=== PATIENT | female | born 1935 | race Caucasian/White ===

== ENCOUNTER 2023-04-23 16:22 | Inpatient (IN) | payer MEDICARE, OTHER ==
[2023-04-23 17:38] LABS: Basophils % (A) 0 %; Eosinophils # (A) 0.1 k/uL (0-0.7); Eosinophils % (A) 1 %; HCT 47.1 % (34.0-46.0); HGB 14.9 gm/dL (11.4-16.0); Lymphocytes # (A) 1.2 k/uL (1.0-4.8); Lymphocytes % (A) 14 %; MCH 28.8 pg (25.0-35.0); MCHC 31.6 g/dL (31.0-37.0); MCV 91.1 fL (80.0-100.0); Mean Platelet Volume 8.3; Monocytes # (A) 0.5 k/uL (0-1.0); Monocytes % (A) 6 %; Neutrophils # (A) 6.2 k/uL (1.3-7.7); Neutrophils % (A) 77 %; Platelet Count 221 k/uL (150-450); RBC 5.16 m/uL (3.80-5.40); RDW 14.2 % (11.5-15.5); WBC 8.1 k/uL (3.8-10.6)
[2023-04-23 17:47] LABS: Partial Thromboplastin Time 23.6 sec (22.0-30.0); Prothrombin Time 10.9 sec (9.0-12.0)
[2023-04-23 17:53] LABS: ALT 61 U/L (4-34); AST 58 U/L (14-36); African American GFR (CKD) 76 (>60 ml/min/1.73 sqM); Albumin 3.8 g/dL (3.5-5.0); Alkaline Phosphatase 79 U/L (38-126); Anion Gap 7 mmol/L; Blood Urea Nitrogen 38 mg/dL (7-17); Calcium 9.4 mg/dL (8.4-10.2); Carbon Dioxide 27 mmol/L (22-30); Chloride 104 mmol/L (98-107); Non-African American GFR(CKD) 66 (>60 ml/min/1.73 sqM); Potassium 5.1 mmol/L (3.5-5.1); Sodium 138 mmol/L (137-145); Total Bilirubin 1.1 mg/dL (0.2-1.3); Total Protein 6.3 g/dL (6.3-8.2)
[2023-04-23 17:54] LABS: Glucose 85 mg/dL (74-99)
--- NOTE | 2023-04-23 18:01 | XR ---
EXAMINATION TYPE: XR chest 2V DATE OF EXAM: 04/23/2023 5:37 PM COMPARISON: None TECHNIQUE: XR chest 2V Frontal and lateral views of the chest. CLINICAL INDICATION:Female, 88 years old with history of difficulty breathing; FINDINGS: Lungs/Pleura: No evidence of focal consolidation or pneumothorax. Blunting of the costophrenic angles is present. Pulmonary vascularity: Unremarkable. Heart/mediastinum: Cardiomediastinal silhouette is enlarged and stable. Musculoskeletal: Degenerative changes of the shoulder joints. Degeneration changes throughout the spi ne. IMPRESSION: Cardiomegaly with trace bilateral pleural effusions. Correlate with serum BNP.
--- NOTE | 2023-04-23 18:06 | ED ---
General Adult HPI - General Chief complaint: Shortness of Breath Stated complaint: sob Time Seen by Provider: 04/23/23 17:00 Source: patient, family, RN notes reviewed, old records reviewed Mode of arrival: wheelchair Limitations: no limitations - History of Present Illness Initial comments: This is an 88-year-old female who presents emergency Department complaining of difficulty breathing 1 week. Patient went to see her primary medical care doctor he sent her to the emergency department. Patient states she's also noticed increased swelling to the legs. Patient states she sits in bed or on a couch she's finding so she gets up and moves around she's very short of breath. Patient denies any chest pain or palpitations. Patient denies any cough. Patient denies any calf tenderness. Patient denies any history of atrial fibrillation. Patient denies any history of congestive heart. Patient denies headache patient denies numbness weakness per patient denies lightheadedness or dizziness. - Related Data Home Medications Medication Instructions Recorded Confirmed Calcium Carbonate/Vitamin D3 1 cap PO BID 04/23/23 04/23/23 [Calcium 600 mg-D3 10 Mcg (400 Iu)] Cholecalciferol [Vitamin D3 (125 125 mcg PO DAILY 04/23/23 04/23/23 Mcg = 5000 Iu)] Denosumab [Prolia] 60 mg SQ Q180D 04/23/23 04/23/23 Levothyroxine Sodium [Synthroid] 25 mcg PO DAILY 04/23/23 04/23/23 Rosuvastatin Calcium 5 mg PO DAILY 04/23/23 04/23/23 Allergies Allergy/AdvReac Type Severity Reaction Status Date / Time No Known Allergies Allergy Verified 04/23/23 19:04 Review of Systems ROS Statement: Those systems with pertinent positive or pertinent negative responses have been documented in the HPI. ROS Other: All systems not noted in ROS Statement are negative. Past Medical History Past Medical History: No Reported History History of Any Multi-Drug Resistant Organisms: None Reported Past Surgical History: No Surgical Hx Reported Past Psychological History: No Psychological Hx Reported Smoking Status: Former smoker Past Alcohol Use History: Occasional Past Drug Use History: None Reported General Exam - General Exam Comments Initial Comments: GENERAL: Patient is well-developed and well-nourished. Patient is nontoxic and well- hydrated and is in mild distress. ENT: Neck is soft and supple. No significant lymphadenopathy is noted. Oropharynx is clear. Moist mucous membranes. Neck has full range of motion without eliciting any pain. EYES: The sclera were anicteric and conjunctiva were pink and moist. Extraocular movements were intact and pupils were equal round and reactive to light. Eyelids were unremarkable. PULMONARY: Patient has diminished breath sounds on the right with some crackles bilaterally CARDIOVASCULAR: There is a regular rate and rhythm without any murmurs gallops or rubs. ABDOMEN: Soft and nontender with normal bowel sounds. SKIN: Skin is clear with no lesions or rashes and otherwise unremarkable. NEUROLOGIC: Patient is alert and oriented x3. Cranial nerves II through XII are grossly intact. Motor and sensory are also intact. Normal speech, volume and content. Symmetrical smile. MUSCULOSKELETAL: Normal extremities with adequate strength and full range of motion. 2+ edema bilaterally LYMPHATICS: No significant lymphadenopathy is noted PSYCHIATRIC: Normal psychiatric evaluation. Limitations: no limitations Course Vital Signs 04/23/23 04/23/23 04/23/23 16:47 17:20 17:24 Temperature 98.6 F Pulse Rate 97 84 Respiratory 22 20 20 Rate Blood Pressure 108/67 110/69 O2 Sat by Pulse 97 95 Oximetry 04/23/23 18:10 Temperature Pulse Rate 83 Respiratory 20 Rate Blood Pressure 109/66 O2 Sat by Pulse 96 Oximetry Medical Decision Making - Medical Decision Making EKG was interpreted by myself shows a sinus rhythm at 93 bpm KS interval 170 QRS 125 QT interval 390 QTC is 450. Patient's shows Q waves in the precordial leads V1 and V2 and V3. Patient is not expressing any chest pain. Was pt. sent in by a medical professional or institution (, PA, DETAILER, urgent care, hospital, or correction...) When possible be specific @ -Dr. Dominique sent the patient to the emergency department Did you speak to anyone other than the patient for history (EMS, parent, family, police, friend...)? What history was obtained from this source @ -Prior to arrival Dr. Dominique gave me the history on this patient Did you review nursing and triage notes (agree or disagree)? Why? @ -I reviewed and agree with nursing and triage notes Were old charts reviewed (outside hosp., previous admission, EMS record, old EKG, old radiological studies, urgent care reports/EKG's, correction records)? Report findings @ -No Differential Diagnosis (chest pain, altered mental status, abdominal pain women, abdominal pain men, vaginal bleeding, weakness, fever, dyspnea, syncope, headache, dizziness, GI bleed, back pain, seizure, CVA, palpatations, mental health, musculoskeletal)? @ -Differential Dyspnea: Coronary syndrome, arrhythmia, tamponade, asthma, COPD, pulmonary embolism, pneumonia, pneumothorax, pulmonary effusion, anaphylaxis, diabetic ketoacidosis, flailed chest, pulmonary contusion, diaphragmatic rupture, anemia, neuromuscular, this is not meant to be an all-inclusive list. EKG interpreted by me (3pts min.). @ -As above X-rays interpreted by me (1pt min.). @ -Chest x-ray showed pulmonary edema CT interpreted by me (1pt min.). @ -None done U/S interpreted by me (1pt. min.). @ -None done What testing was considered but not performed or refused? (CT, X-rays, U/S, labs)? Why? @ -Consider doing a computed tomography scan to rule out PE however the d-dimer was significantly elevated What meds were considered but not given or refused? Why? @ -None Did you discuss the management of the patient with other professionals (professionals i.e. , PA, DETAILER, lab, RT, psych nurse, social studies teacher, forgesmith, teacher, air control/anti air warfare officer, case monitor)? Give summary @ -[place] to [place] hospitalist who agreed to admit the patient Was smoking cessation discussed for >3mins.? @ -No Was critical care preformed (if so, how long)? @ -No Were there social determinants of health that impacted care today? How? (Homelessness, low income, unemployed, alcoholism, drug addiction, trans portation, low edu. Level, literacy, decrease access to med. care, penitentiary, rehab)? @ -No Was there de-escalation of care discussed even if they declined (Discuss DNR or withdrawal of care, Hospice)? DNR status @ -No What co-morbidities impacted this encounter? (DM, HTN, Smoking, COPD, CAD, Cancer, CVA, ARF, Chemo, Hep., AIDS, mental health diagnosis, sleep apnea, morbid obesity)? @ -None Was patient admitted / discharged? Hospital course, mention meds given and route, prescriptions, significant lab abnormalities, going to OR and other pertinent info. @ -Patient received Lasix and had Nitropaste placed while in the emergency department. I spoke with [facility] hospitalist agreed to admit the patient admitted the patient wrote admitting orders. Undiagnosed new problem with uncertain prognosis? @ -No Drug Therapy requiring intensive monitoring for toxicity (Heparin, Nitro, Insulin, Cardizem)? @ -No Were any procedures done? @ -No Diagnosis/symptom? @ -Pulmonary edema Acute, or Chronic, or Acute on Chronic? @ -Acute Uncomplicated (without systemic symptoms) or Complicated (systemic symptoms)? @ -Complicated Side effects of treatment? @ -No Exacerbation, Progression, or Severe Exacerbation? @ -Exacerbation Poses a threat to life or bodily function? How? (Chest pain, [place], [place], pneumonia, PE, COPD, DKA, ARF, appy, cholecystitis, CVA, Diverticulitis, Homicidal, Suicidal, threat to staff... and all critical care pts) @ -Yes is poses a threat to life secondary to hypoxia - Lab Data Result diagrams: 04/23/23 17:16 04/23/23 17:16 Lab Results 04/23/23 04/23/23 04/23/23 Range/Units 17:16 17:16 17:16 WBC 8.1 (3.8-10.6) k/uL RBC 5.16 (3.80-5.40) m/uL Hgb 14.9 (11.4-16.0) gm/dL Hct 47.1 H (34.0-46.0) % MCV 91.1 (80.0-100.0) fL MCH 28.8 (25.0-35.0) pg MCHC 31.6 (31.0-37.0) g/dL RDW 14.2 (11.5-15.5) % Plt Count 221 (150-450) k/uL MPV 8.3 Neutrophils % 77 % Lymphocytes % 14 % Monocytes % 6 % Eosinophils % 1 % Basophils % 0 % Neutrophils # 6.2 (1.3-7.7) k/uL Lymphocytes # 1.2 (1.0-4.8) k/uL Monocytes # 0.5 (0-1.0) k/uL Eosinophils # 0.1 (0-0.7) k/uL Basophils # 0.0 (0-0.2) k/uL PT 10.9 (9.0-12.0) sec INR 1.0 (<1.2) APTT 23.6 (22.0-30.0) sec D-Dimer 0.82 H (<0.60) mg/L FEU Sodium 138 (137-145) mmol/L Potassium 5.1 (3.5-5.1) mmol/L Chloride 104 (98-107) mmol/L Carbon Dioxide 27 (22-30) mmol/L Anion Gap 7 mmol/L BUN 38 H (7-17) mg/dL Creatinine 0.80 (0.52-1.04) mg/dL Est GFR (CKD-EPI)AfAm 76 (>60 ml/min/1.73 sqM) Est GFR (CKD-EPI)NonAf 66 (>60 ml/min/1.73 sqM) Glucose 85 (74-99) mg/dL Plasma Lactic Acid James (0.7-2.0) mmol/L Calcium 9.4 (8.4-10.2) mg/dL Magnesium 2.0 (1.6-2.3) mg/dL Total Bilirubin 1.1 (0.2-1.3) mg/dL AST 58 H (14-36) U/L ALT 61 H (4-34) U/L Alkaline Phosphatase 79 (38-126) U/L Troponin I (0.000-0.034) ng/mL NT-Pro-B Natriuret Pep pg/mL Total Protein 6.3 (6.3-8.2) g/dL Albumin 3.8 (3.5-5.0) g/dL 04/23/23 04/23/23 04/23/23 Range/Units 17:16 17:16 17:16 WBC (3.8-10.6) k/uL RBC (3.80-5.40) m/uL Hgb (11.4-16.0) gm/dL Hct (34.0-46.0) % MCV (80.0-100.0) fL MCH (25.0-35.0) pg MCHC (31.0-37.0) g/dL RDW (11.5-15.5) % Plt Count (150-450) k/uL MPV Neutrophils % % Lymphocytes % % Monocytes % % Eosinophils % % Basophils % % Neutrophils # (1.3-7.7) k/uL Lymphocytes # (1.0-4.8) k/uL Monocytes # (0-1.0) k/uL Eosinophils # (0-0.7) k/uL Basophils # (0-0.2) k/uL PT (9.0-12.0) sec INR (<1.2) APTT (22.0-30.0) sec D-Dimer (<0.60) mg/L FEU Sodium (137-145) mmol/L Potassium (3.5-5.1) mmol/L Chloride (98-107) mmol/L Carbon Dioxide (22-30) mmol/L Anion Gap mmol/L BUN (7-17) mg/dL Creatinine (0.52-1.04) mg/dL Est GFR (CKD-EPI)AfAm (>60 ml/min/1.73 sqM) Est GFR (CKD-EPI)NonAf (>60 ml/min/1.73 sqM) Glucose (74-99) mg/dL Plasma Lactic Acid James 1.4 (0.7-2.0) mmol/L Calcium (8.4-10.2) mg/dL Magnesium (1.6-2.3) mg/dL Total Bilirubin (0.2-1.3) mg/dL AST (14-36) U/L ALT (4-34) U/L Alkaline Phosphatase (38-126) U/L Troponin I 0.039 H* (0.000-0.034) ng/mL NT-Pro-B Natriuret Pep 6490 pg/mL Total Protein (6.3-8.2) g/dL Albumin (3.5-5.0) g/dL Disposition Clinical Impression: Acute pulmonary edema Disposition: ADMITTED IP TO THIS HOSP Referrals: Faustino Dominique MD [Primary Care Provider] - 1-2 days Time of Disposition: 19:12
[2023-04-23] MEDS ORDERED: FUROSEMIDE 10 MG/ML 4 ML VIAL IV STA (19:17)
[2023-04-24] MEDS: FUROSEMIDE 10 MG/ML 4 ML VIAL IV SCH ×2 (05:41→18:46)
--- NOTE | 2023-04-24 11:39 | P.CRDCN ---
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 She has a past medical history of hyperlipidemia and hypothyroidism. She gives history of having shortness of breath that start ed about a week ago but she was putting off getting treatment because she had an appointment with Dr. Dominique yesterday. It was noted that she had weight gain of 7 pounds, lower extremity edema and he sent her to the emergency center for further evaluation. At the time of this evaluation. Patient states that she does have minimal shortness of breath with activity and lower extremity edema is improving. She denies having any chest pain or pressure, no pain in the jaw or arms. No sweats. No orthopnea, she states she's never had this shortness of breath before. Patient received 1 dose of IV Lasix has been followed by IV 40 every 12 hours. She has been diuresing. She does have a history of smoking and quit 30 years ago. She drinks a glass of wine sometimes before dinner. She has a family history with mother having heart failure. Patient is seen today in the emergency center waiting for a bed on the cardiac stepdown unit EKG sinus rhythm, sinus arrhythmia Chest x-ray: Cardiomegaly with bilateral pleural effusions WBC 8.1, hemoglobin 14.9, platelet count 221. D-dimer 0.82. Electrolytes normal. BUN 38 creatinine 0.8. Lactic acid 1.4. Magnesium 2. AST 58, ALT 61. Troponin 0.039. ProBNP 6490. Home cardiac medications: Levothyroxine 25 g daily, rosuvastatin 5 mg daily Review Of Systems: At the time of my evaluation: Constitutional: No fever, no chills. Reports fatigue. EENT: No headache. No dizziness. Lungs: Reports shortness of breath, cough, no sputum production. No wheezing. Reports dyspnea on exertion Cardiovascular: No chest pain, reports lower extremity edema. No palpitations. No paroxysmal nocturnal dyspnea. No orthopnea. No lightheadedness or dizziness. No syncopal episodes. Abdominal: No abdominal pain. No nausea, vomiting. No diarrhea. No constipation. No bloody or tarry stools. Musculoskeletal: No myalgias. No muscle weakness, no frequent falls. Integumentary: No wounds. No rash. No unusual bruising. Neurologic: No aphasia. No facial droop. No change in mentation. Physical examination: Gen: This is a frail appearing 88-year-old female. She is resting in the ear surgery and appears to be comfortable and in no acute distress. VS: reviewed HEENT: Head is atraumatic, normocephalic. Pupils equal, round. Sclerae is anicteric. NECK: Supple. No JVD. LUNGS: Mild crackles to the bilateral bases No intercostal retractions. HEART: Irregular rate and rhythm. No murmur. ABDOMEN: Soft No tenderness. EXTREMITIES: 1+ pedal edema. No calf tenderness. NEUROLOGICAL: Patient is awake, alert and oriented x3. Assessment: Acute heart failure, EF unknown, most likely diastolic Hyperlipidemia Hypothyroidism Plan: Continue IV Lasix for another 24 hours Monitor I&O, daily weights selective lites and renal function Obtain 2-D echocardiogram and Doppler study to assess cardiac structure and function Discussed option of undergoing stress test ruling out coronary artery disease. We'll revisit tomorrow. Further recommendations to follow based upon clinical course Thank you kindly for this consultation. Nurse practitioner note has been reviewed, I agree with documented findings and plan of care. Patient was seen and examined. Past Medical History Past Medical History: No Reported History History of Any Multi-Drug Resistant Organisms: None Reported Past Surgical History: No Surgical Hx Reported Past Psychological History: No Psychological Hx Reported Smoking Status: Former smoker Past Alcohol Use History: Occasional Past Drug Use History: None Reported Medications and Allergies Home Medications Medication Instructions Recorded Confirmed Type Calcium Carbonate/Vitamin D3 1 cap PO BID 04/23/23 04/23/23 History [Calcium 600 mg-D3 10 Mcg (400 Iu)] Cholecalciferol [Vitamin D3 (125 125 mcg PO DAILY 04/23/23 04/23/23 History Mcg = 5000 Iu)] Denosumab [Prolia] 60 mg SQ Q180D 04/23/23 04/23/23 History Levothyroxine Sodium [Synthroid] 25 mcg PO DAILY 04/23/23 04/23/23 History Rosuvastatin Calcium 5 mg PO DAILY 04/23/23 04/23/23 History Allergies Allergy/AdvReac Type Severity Reaction Status Date / Time No Known Allergies Allergy Verified 04/23/23 19:04 Physical Exam Vitals: Vital Signs Temp Pulse Resp BP Pulse Ox 04/24/23 06:32 97.8 F 88 16 105/65 97 04/24/23 05:00 88 16 112/72 99 04/24/23 03:01 79 16 112/74 97 04/23/23 23:06 98.6 F 80 16 110/70 98 04/23/23 19:50 98.1 F 81 18 113/68 97 04/23/23 18:10 83 20 109/66 96 04/23/23 17:24 84 20 110/69 95 04/23/23 17:20 20 04/23/23 16:47 98.6 F 97 22 108/67 97 Intake and Output 04/23/23 04/24/23 04/24/23 22:59 06:59 14:59 Other: Weight 44.906 kg Results 04/23/23 17:16 04/23/23 17:16 Cardiac Enzymes 04/23/23 04/23/23 Range/Units 17:16 17:16 AST 58 H (14-36) U/L Troponin I 0.039 H* (0.000-0.034) ng/mL Coagulation 04/23/23 Range/Units 17:16 PT 10.9 (9.0-12.0) sec APTT 23.6 (22.0-30.0) sec CBC 04/23/23 Range/Units 17:16 WBC 8.1 (3.8-10.6) k/uL RBC 5.16 (3.80-5.40) m/uL Hgb 14.9 (11.4-16.0) gm/dL Hct 47.1 H (34.0-46.0) % Plt Count 221 (150-450) k/uL Comprehensive Metabolic Panel 04/23/23 Range/Units 17:16 Sodium 138 (137-145) mmol/L Potassium 5.1 (3.5-5.1) mmol/L Chloride 104 (98-107) mmol/L Carbon Dioxide 27 (22-30) mmol/L BUN 38 H (7-17) mg/dL Creatinine 0.80 (0.52-1.04) mg/dL Glucose 85 (74-99) mg/dL Calcium 9.4 (8.4-10.2) mg/dL AST 58 H (14-36) U/L ALT 61 H (4-34) U/L Alkaline Phosphatase 79 (38-126) U/L Total Protein 6.3 (6.3-8.2) g/dL Albumin 3.8 (3.5-5.0) g/dL Current Medications Generic Name Dose Route Start Last Admin Trade Name Freq PRN Reason Stop Dose Admin Furosemide 40 mg 04/24/23 06:00 04/24/23 05:41 Furosemide 10 Mg/Ml 4 Ml Vial IV 40 mg Q12H LEAH Administration Nitroglycerin 1 inch 04/24/23 22:00 Nitroglycerin Oint 1 Inch/Gm Packet TOPICAL QID LEAH Intake and Output 04/23/23 04/24/23 04/24/23 22:59 06:59 14:59 Other: Weight 44.906 kg 04/23/23 17:16 04/23/23 17:16
--- NOTE | 2023-04-24 12:11 | CA ---
Transthoracic Echo Report Name: Cori Mendez Age: 88 Gender: F : 1935 Exam Date: 04/24/2023 11:11 Exam Location: [facility] Ht (in): 63 Wt (lb): 99 Ordering Physician: Alivia Shea Attending/Referring Phys: [id number], Monse Bag Machine Operator Gita France RDCS Procedure CPT: Indications: LVF Cardiac Hx: Technical Quality: Excellent Contrast 1: Total Dose (mL): Contrast 2: Total Dose (mL): MEASUREMENTS (Male / Female) Normal Values 2D ECHO LV Diastolic Diameter PLAX 6.0 cm 4.2 - 5.9 / 3.9 - 5.3 cm LV Systolic Diameter PLAX 5.4 cm IVS Diastolic Thickness 0.8 cm 0.6 - 1.0 / 0.6 - 0.9 cm LVPW Diastolic Thickness 1.0 cm 0.6 - 1.0 / 0.6 - 0.9 cm LV Relative Wall Thickness 0.3 RV Internal Dim ED PLAX 2.8 cm LA Systolic Diameter LX 2.8 cm 3.0 - 4.0 / 2.7 - 3.8 cm LV Diastolic Volume MOD 4C 120.5 cm??? LV Systolic Volume MOD 4C 78.3 cm??? LV Ejection Fraction MOD 4C 35.0 % LV Diastolic Length 4C 7.5 cm LV Systolic Length 4C 6.5 cm LV Diastolic Volume MOD 2C 87.9 cm??? LV Systolic Volume MOD 2C 59.6 cm??? LV Ejection Fraction MOD 2C 32.2 % LV Diastolic Length 2C 6.6 cm LV Systolic Length 2C 5.7 cm LA Volume 53.9 cm??? 18 - 58 / 22 - 52 cm??? M-MODE Aortic Root Diameter MM 3.2 cm AV Cusp Separation MM 2.0 cm DOPPLER AV Peak Velocity 120.1 cm/s AV Peak Gradient 5.8 mmHg AI Peak Velocity 313.6 cm/s AI Peak Gradient 39.3 mmHg AI Pressure Half Time 1274.5 ms MV Area PHT 3.6 cm??? Mitral E Point Velocity 92.3 cm/s Mitral A Point Velocity 110.6 cm/s Mitral E to A Ratio 0.8 MV Deceleration Time 209.7 ms MV E' Velocity 4.6 cm/s Mitral E to MV E' Ratio 20.0 TR Peak Velocity 283.9 cm/s TR Peak Gradient 32.2 mmHg Right Ventricular Systolic Press 37.2 mmHg FINDINGS Left Ventricle Left ventricular ejection fraction is estimated at less than 20 %. Moderately increased left ventricular diastolic diameter. Left ventricular wall thickness normal. Severely reduced global left ventricular systolic function. Right Ventricle Normal right ventricular size and function. Mild pulmonary hypertension. Right Atrium Normal right atrial size. Left Atrium Mildly increased left atrial volume. Mitral Valve Mitral valve thickened. Trace to mild mitral regurgitation. Aortic Valve Trileaflet aortic valve. Mild aortic regurgitation. Tricuspid Valve Structurally normal tricuspid valve. Mild tricuspid regurgitation. Pulmonic Valve Structurally normal pulmonic valve. Trace pulmonic regurgitation. Pericardium Normal pericardium. No pericardial effusion. Aorta Normal size aortic root and proximal ascending aorta. CONCLUSIONS Dilated LV with severely impaired LV function. EF is 20% Previewed by: Dr. Get Gonzalez MD (Electronically Signed) Final Date: 24 April 2023 12:10
--- NOTE | 2023-04-24 12:34 | CT ---
EXAMINATION TYPE: CT angio chest DATE OF EXAM: 04/24/2023 COMPARISON: NONE HISTORY: elevated d-dimer and shortness of breath CT DLP: 156 mGycm. Automated Exposure Control for Dose Reduction was Utilized. CONTRAST: CTA scan of the thorax is performed with IV Contrast, patient injected with 100 mL of Isovue 370, pul monary embolism protocol. MIP Images are created on CT scanner and reviewed. FINDINGS: LUNGS: Small to moderate size right greater than left pleural effusions are redemonstrated. There is associated compressive atelectasis in the bases. There is mild/moderate biapical pleural/parenchymal scarring. There is right apical 2.3 x 1.5 cm nodule or nodular consolidation axial image 24 noted. So me dependent atelectasis or edema along the major fissures bilaterally. MEDIASTINUM: There is satisfactory enhancement of the pulmonary artery and its branches, there is no CT evidence for pulmonary embolism. There are no greater than 1 cm hilar or mediastinal lymph nodes. Cardiomegaly is present. Tiny pericardial effusion is seen. Ascending aorta measures 3.[address] in the coronal image 36. OTHER: Mild/moderate multilevel spurring in the spine. IMPRESSION: 1. No CT evidence for acute pulmonary embolism. 2. Findings consistent with CHF exacerbation as there is cardiomegaly with [id number] size rig ht greater than left pleural effusions and mild alveolar edema felt present. 3. There is mild to moderate biapical pleural/critical scarring with slightly more nodular area in th e right lung apex. Underlying pulmonary nodule cannot be excluded. Follow-up PET/CT is advised to fur ther evaluate if there is no old outside CT to compare.
--- NOTE | 2023-04-24 12:43 | HP ---
HISTORY AND PHYSICAL CHIEF COMPLAINT: Shortness of breath. HISTORY OF PRESENT ILLNESS: This is an 88-year-old woman with a past medical history of hyperlipidemia and hypothyroidism, presented with shortness of breath and leg edema to primary physician's office. The patient was sent to [facility], CHF was suspected. Troponin was found to be 0.03. There is no history of any fever, rigors, or chills. PAST MEDICAL HISTORY: Hyperlipidemia, hypothyroidism. HOME MEDICATIONS: Reviewed include levothyroxine, dose and rest of medications reviewed. ALLERGIES: None. FAMILY HISTORY: No history of heart disease or strokes in the family. SOCIAL HISTORY: Previous history of smoking. REVIEW OF SYSTEMS: A 14-point review is negative except as mentioned earlier. PHYSICAL EXAMINATION: VITAL SIGNS: Pulse 83, blood pressure 105/70, and respirations 16. HEENT: Conjunctivae normal. NECK: Jugular venous distention in the root of the neck. CARDIOVASCULAR: S1, S2 muffled. RESPIRATIONS: Clear, few scattered rhonchi, no crackles. ABDOMEN: Soft. LEGS: No edema. No swelling. NERVOUS SYSTEM: No focal deficit. SKIN: No ulcer, rash, bleeding. JOINTS: No active deforming arthropathy. LABORATORY DATA: Reviewed. ASSESSMENT: 1. CHF acute exacerbation. 2. Troponin 0.039, rule out acute coronary syndrome and [id number] myocardial infarction. 3. Hyperlipidemia. 4. Hypothyroidism. RECOMMENDATIONS AND DISCUSSION: Recommended to continue current management, continue symptomatic treatment. Recommended CT angio of the chest, cardiac consultation, 2D echo. Guarded prognosis because of multiple complex medical conditions. See orders for further details. MMODL / IJN: [id number] /
[2023-04-24] MEDS: NITROGLYCERIN OINT 1 INCH/GM PACKET TOPICAL SCH (21:26)
[2023-04-24] MEDS: CALCIUM CARB-VIT D 500 MG-5 MCG TAB PO SCH (23:45)
[2023-04-25] MEDS: LEVOTHYROXINE 25 MCG TAB PO SCH (06:40)
[2023-04-25] MEDS: FUROSEMIDE 10 MG/ML 4 ML VIAL IV SCH (06:40)
[2023-04-25 08:28] LABS: Basophils # (A) 0.1 k/uL (0-0.2); Basophils % (A) 1 %; Eosinophils # (A) 0.2 k/uL (0-0.7); Eosinophils % (A) 3 %; HCT 47.2 % (34.0-46.0); HGB 15.5 gm/dL (11.4-16.0); Lymphocytes # (A) 1.1 k/uL (1.0-4.8); Lymphocytes % (A) 13 %; MCH 29.5 pg (25.0-35.0); MCHC 32.8 g/dL (31.0-37.0); MCV 90.1 fL (80.0-100.0); Monocytes # (A) 0.6 k/uL (0-1.0); Monocytes % (A) 6 %; Neutrophils # (A) 6.6 k/uL (1.3-7.7); Neutrophils % (A) 77 %; Platelet Count 242 k/uL (150-450); RBC 5.24 m/uL (3.80-5.40); WBC 8.6 k/uL (3.8-10.6)
[2023-04-25 08:39] LABS: ALT 43 U/L (4-34); AST 43 U/L (14-36); African American GFR (CKD) 51 (>60 ml/min/1.73 sqM); Albumin 3.3 g/dL (3.5-5.0); Alkaline Phosphatase 77 U/L (38-126); Anion Gap 10 mmol/L; Blood Urea Nitrogen 41 mg/dL (7-17); Calcium 9.8 mg/dL (8.4-10.2); Carbon Dioxide 31 mmol/L (22-30); Chloride 96 mmol/L (98-107); Glucose 141 mg/dL (74-99); Non-African American GFR(CKD) 45 (>60 ml/min/1.73 sqM); Sodium 137 mmol/L (137-145); Total Bilirubin 0.9 mg/dL (0.2-1.3); Total Protein 5.4 g/dL (6.3-8.2)
[2023-04-25] MEDS: CHOLECALCIFEROL 125 MCG (5000 IU) TABLET PO SCH (09:07)
[2023-04-25] MEDS: NITROGLYCERIN OINT 1 INCH/GM PACKET TOPICAL SCH ×4 (09:07→21:20)
[2023-04-25] MEDS: ATORVASTATIN 10 MG TAB PO SCH (09:07)
[2023-04-25] MEDS: CALCIUM CARB-VIT D 500 MG-5 MCG TAB PO SCH ×2 (09:07→20:21)
--- NOTE | 2023-04-25 10:01 | XR ---
EXAMINATION TYPE: XR chest 1V portable DATE OF EXAM: 04/25/2023 9:53 AM COMPARISON: CTA chest 04/24/2023, chest radiograph 04/23/2023 TECHNIQUE: XR chest 1V portable Portable AP radiograph of the chest. CLINICAL INDICATION:Female, 88 years old with history of shortness of breath; FINDINGS: Lungs/Pleura: Hyperinflation with biapical pleural-parenchymal scarring. Blunting of both costophreni c angles with small bilateral pleural effusions. No focal consolidation. Pulmonary vascularity: Unremarkable. Heart/mediastinum: Cardiomediastinal silhouette is enlarged and stable. Atherosclerotic calcificatio ns are seen in the aorta. Musculoskeletal: No acute osseous pathology. IMPRESSION: Background COPD changes with cardiomegaly and small bilateral pleural effusions.
[2023-04-25 12:20] VITALS: BMI 15.4
--- NOTE | 2023-04-25 12:25 | PN ---
PROGRESS NOTE DATE OF SERVICE: 04/25/2023 SUBJECTIVE: This is an 88-year-old woman, who was admitted with CHF acute exacerbation, was closely monitored. The patient also had minimal elevation of the troponins also. A CT angio of the chest showed no evidence of pulmonary embolism. CHF was noted. A 2D echocardiogram showed ejection fraction of about 20%. There is no history of any fever, rigors, or chills. PAST MEDICAL HISTORY: Reviewed. PHYSICAL EXAMINATION: VITAL SIGNS: Pulse is 91, blood pressure 105/54, respirations 18. HEENT: Conjunctivae normal. CARDIOVASCULAR: S1, S2. RESPIRATORY: Diminished breath sounds at the bases. ABDOMEN: Soft. LEGS: No edema. No cyanosis. NERVOUS SYSTEM: Nonfocal. LABORATORY DATA: Reviewed. ASSESSMENT: 1. Congestive heart failure acute exacerbation with acute on chronic systolic dysfunction, ejection fraction 20%. 2. Possible cardiomyopathy. 3. Troponin 0.039, rule out acute non-ST segment elevation myocardial infarction. 4. Hyperlipidemia. 5. Hypothyroidism. 6. Multiple medical issues. RECOMMENDATIONS AND DISCUSSION: I recommend to continue current medications and symptomatic treatment. Continue with Lasix. Follow closely with Cardiology. Beta-blockers. Guarded prognosis. Further recommendations to follow. MMODL / IJN: [id number] /
[2023-04-25] MEDS ORDERED: ALPRAZolam 0.5 MG TAB PO PRN (12:43)
[2023-04-25] MEDS ORDERED: NITROGLYCERIN SL TABS 0.4 MG TAB SUBLINGUAL PRN (12:43)
[2023-04-25] MEDS ORDERED: ALPRAZolam 0.25 MG TAB PO PRN (12:43)
[2023-04-25] MEDS: carvediloL 6.25 MG TAB PO SCH ×2 (12:59→16:20)
--- NOTE | 2023-04-25 14:45 | P.CNPUL ---
History of Present Illness Consult date: 04/25/23 Requesting physician: Gil Jones Reason for consult: pleural effusion Chief complaint: Shortness of breath History of present illness: This is an 88-year-old female, no previous significant medical history, she is primarily a patient of Dr benitez Patient is on treatment for hyperlipidemia and hypothyroidism. No previous documented cardiac history and no previous documented pulmonary history. Patient was brought into the ER with 1 week history of shortness of breath. She also gained 7 pounds and she was developing swelling in her lower extremities. Denies any chest pain, denies any orthopnea denies any PND. Seen in the ER, chest x-ray showed evidence of bilateral pleural effusions/congestive heart failure. Patient was also noted to have abnormal CT of the chest, right apical pulmonary nodule, and bilateral pleural effusions as well as nonspecific fibrotic changes noted bilaterally especially in the apices of her lungs. Patient was admitted and this consult was initial. Since admission the patient received IV Lasix, she continues to receive Lasix at 40 mg IV push every 12 hours, she is responding quite well to diuresis, and she is feeling much better today compared to how she felt upon her initial presentation. Hence I'm recommending that we continue the same treatment, and for a pulmonary nodule the patient will need outpatient follow-up, may consider a PET scan on outpatient basis. Patient did have very remote smoking history, that smoking history was minimal, and she quit smoking over 30 years ago Review of Systems Constitutional: No fever, no chills. , No weight loss. She has mostly generalized fatigue. EENT: No headache. No dizziness. Lungs: As noted in HPI mostly shortness of breath more so on exertion Cardiovascular: No chest pain or orthopnea or PND but has been complaining of swelling of her legs. Abdominal: Negative. Musculoskeletal: Negative. Integumentary: No wounds. No rash. No unusual bruising. Neurologic: Negative. Psychiatric: No symptoms of active depression Hematologic: No clotting bleeding or bruising Past Medical History Past Medical History: Hyperlipidemia History of Any Multi-Drug Resistant Organisms: None Reported Past Surgical History: No Surgical Hx Reported Past Anesthesia/Blood Transfusion Reactions: No Reported Reaction Past Psychological History: No Psychological Hx Reported Smoking Status: Former smoker Past Alcohol Use History: Occasional Past Drug Use History: None Reported Medications and Allergies Home Medications Medication Instructions Recorded Confirmed Type Calcium Carbonate/Vitamin D3 1 cap PO BID 04/23/23 04/23/23 History [Calcium 600 mg-D3 10 Mcg (400 Iu)] Cholecalciferol [Vitamin D3 (125 125 mcg PO DAILY 04/23/23 04/23/23 History Mcg = 5000 Iu)] Denosumab [Prolia] 60 mg SQ Q180D 04/23/23 04/23/23 History Levothyroxine Sodium [Synthroid] 25 mcg PO DAILY 04/23/23 04/23/23 History Rosuvastatin Calcium 5 mg PO DAILY 04/23/23 04/23/23 History Allergies Allergy/AdvReac Type Severity Reaction Status Date / Time No Known Allergies Allergy Verified 04/23/23 19:04 Physical Exam Vitals: Vital Signs Temp Pulse Pulse Resp BP BP Pulse Ox 04/25/23 12:00 103 H 16 110/72 94 L 04/25/23 08:00 82 16 108/67 95 04/25/23 04:00 91 18 105/54 93 L 04/25/23 00:00 82 18 111/73 96 04/24/23 19:36 97.6 F 75 18 140/66 95 04/24/23 18:48 85 16 113/53 96 04/24/23 18:17 97.5 F L 89 16 113/74 98 Intake and Output 04/24/23 04/25/23 04/25/23 22:59 06:59 14:59 Intake Total 898 Output Total 550 400 Balance -550 498 Intake: Oral 898 Output: Urine 550 400 Other: Voiding Method Toilet Toilet Toilet Weight 44.906 kg 39.5 kg 39.5 kg Physical Exam: Revealed 88-year-old female in no distress very pleasant on room air Head: Atraumatic normocephalic. HEENT:[Neck is supple.] [No neck masses.] [No thyromegaly.] [No JVD.] Chest: [Slightly diminished breath sounds at the bases no crackles or rhonchi or wheezes] Cardiac Exam: [Normal S1 and S2, no S3 gallop, no murmur.] Abdomen: [Soft, nontender, no megaly, no rebound, no guarding, normal bowel sounds.] Extremities: [No clubbing, no edema, no cyanosis.] Neurological Exam: [No focal neurologic deficit.] Alert and oriented 3. Psychiatric: Normal mood affect and normal mental status examination. Skin: No rashes Results - Laboratory Findings CBC and BMP: 04/25/23 07:57 04/25/23 07:57 PT/INR, D-dimer PT 10.9 sec (9.0-12.0) 04/23/23 17:16 INR 1.0 (<1.2) 04/23/23 17:16 D-Dimer 0.82 mg/L FEU (<0.60) H 04/23/23 17:16 Abnormal lab findings: Abnormal Labs 04/23/23 04/23/23 04/23/23 17:16 17:16 17:16 Hct 47.1 H D-Dimer 0.82 H Chloride Carbon Dioxide BUN 38 H Creatinine Glucose AST 58 H ALT 61 H Troponin I Total Protein Albumin 04/23/23 04/24/23 04/25/23 17:16 10:45 07:57 Hct 47.2 H D-Dimer Chloride Carbon Dioxide BUN Creatinine Glucose AST ALT Troponin I 0.039 H* 0.044 H* Total Protein Albumin 04/25/23 07:57 Hct D-Dimer Chloride 96 L Carbon Dioxide 31 H BUN 41 H Creatinine 1.10 H Glucose 141 H AST 43 H ALT 43 H Troponin I Total Protein 5.4 L Albumin 3.3 L - Diagnostic Findings Chest x-ray: image reviewed (Bilateral pleural effusions consistent with congestive heart failure) CT scan - chest: image reviewed (CT of the chest showed small right apical pulmonary nodule, will need outpatient follow-up.) Assessment and Plan Assessment: Impression: Acute congestive heart failure, systolic in nature, patient had an ejection fraction of less than 20%. Bilateral pleural effusions secondary to above Severe cardiomyopathy and LV dysfunction, cardiology is addressing this issue. History of hypothyroidism History of dyslipidemia Solitary lung nodule, will need outpatient follow-up Recommendation: Fully agree with the present treatment plan Consider PET scan on outpatient basis Continue diuretics Workup for systolic dysfunction is as per cardiology We will continue to follow No need for thoracentesis at this point since the patient is responding well to Lasix Time with Patient: Greater than 30
--- NOTE | 2023-04-25 14:48 | P.PN ---
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 She has a past medical history of hyperlipidemia and hypothyroidism. She gives history of having shortness of breath that started about a week ago but she was putting off getting treatment because she had an appointment with Dr. Dominique yesterday. It was noted that she had weight gain of 7 pounds, lower extremity edema and he sent her to the emergency center for further evaluation. At the time of this evaluation. Patient states that she does have minimal shortness of breath with activity and lower extremity edema is improving. She denies having any chest pain or pressure, no pain in the jaw or arms. No sweats. No orthopnea, she states she's never had this shortness of breath before. Patient received 1 dose of IV Lasix has been followed by IV 40 every 12 hours. She has been diuresing. She does have a history of smoking and quit 30 years ago. She drinks a glass of wine sometimes before dinner. She has a family history with mother having heart failure. Patient is seen today in the emergency center waiting for a bed on the cardiac stepdown unit EKG sinus rhythm, sinus arrhythmia Chest x-ray: Cardiomegaly with bilateral pleural effusions WBC 8.1, hemoglobin 14.9, platelet count 221. D-dimer 0.82. Electrolytes normal. BUN 38 creatinine 0.8. Lactic acid 1.4. Magnesium 2. AST 58, ALT 61. Troponin 0.039. ProBNP 6490. Home cardiac medications: Levothyroxine 25 g daily, rosuvastatin 5 mg daily 04/25 Patient is seen today on the cardiac stepdown unit. She states her breathing is better today and she has been urinating a lot. She has ambulated in her room only. She denies any chest pain or pressure. She does have shortness of breath with activity. She continues to have minimal edema only. Echocardiogram reveals EF of less than 20%. Discussed option of cardiac catheterization with the patient and family members at bedside. She is in agreement to move forward with this and it will be scheduled for tomorrow. Patient will be started on mild hydration overnight. Physical examination: Gen: This is a frail appearing 88-year-old female. She is resting in bed and appears to be comfortable and in no acute distress. VS: reviewed HEENT: Head is atraumatic, normocephalic. Pupils equal, round. Sclerae is anicteric. NECK: Supple. No JVD. LUNGS: Mild crackles to the bilateral bases No intercostal retractions. HEART: Irregular rate and rhythm. No murmur. ABDOMEN: Soft No tenderness. EXTREMITIES: 1+ pedal edema. No calf tenderness. NEUROLOGICAL: Patient is awake, alert and oriented x3. Assessment: Acute systolic heart failure Hyperlipidemia Hypothyroidism Plan: Discontinue Lasix Scheduled patient for cardiac catheterization tomorrow with Dr. Alfaro Further recommendations to follow based upon clinical course Monitor renal function. Nurse practitioner note has been reviewed, I agree with documented findings and plan of care. Patient was seen and examined. Objective - Vital Signs Vital signs: Vital Signs Temp 97.6 F 04/24/23 19:36 Pulse 82 04/25/23 08:00 Resp 16 04/25/23 08:00 BP 108/67 04/25/23 08:00 Pulse Ox 95 04/25/23 08:00 FiO2 Intake & Output 04/24/23 04/25/23 04/25/23 18:59 06:59 18:59 Intake Total 780 Output Total 550 400 Balance -550 380 Weight 39.5 kg 39.5 kg Intake: Oral 780 Output: Urine 550 400 Other: Voiding Method Toilet Toilet - Labs CBC & Chem 7: 04/25/23 07:57 04/25/23 07:57 Labs: Abnormal Lab Results - Last 24 Hours (Table) 04/25/23 04/25/23 Range/Units 07:57 07:57 Hct 47.2 H (34.0-46.0) % Chloride 96 L (98-107) mmol/L Carbon Dioxide 31 H (22-30) mmol/L BUN 41 H (7-17) mg/dL Creatinine 1.10 H (0.52-1.04) mg/dL Glucose 141 H (74-99) mg/dL AST 43 H (14-36) U/L ALT 43 H (4-34) U/L Total Protein 5.4 L (6.3-8.2) g/dL Albumin 3.3 L (3.5-5.0) g/dL
[2023-04-25] MEDS: SODIUM CHLORIDE 0.9% 1,000 ML IV SCH (23:30)
[2023-04-26 06:42] LABS: Glucose,Whole Blood 90 mg/dL (70-110)
[2023-04-26] MEDS: LEVOTHYROXINE 25 MCG TAB PO SCH (06:45)
[2023-04-26] MEDS: ATORVASTATIN 10 MG TAB PO SCH (06:45)
[2023-04-26] MEDS: CHOLECALCIFEROL 125 MCG (5000 IU) TABLET PO SCH (06:45)
[2023-04-26] MEDS: carvediloL 6.25 MG TAB PO SCH ×2 (06:45→16:26)
[2023-04-26] MEDS: CALCIUM CARB-VIT D 500 MG-5 MCG TAB PO SCH ×2 (06:45→21:09)
[2023-04-26] MEDS: NITROGLYCERIN OINT 1 INCH/GM PACKET TOPICAL SCH ×4 (06:45→21:08)
[2023-04-26] MEDS ORDERED: ATORVASTATIN 80 MG TAB PO ONE (07:00)
[2023-04-26] MEDS ORDERED: HEPARIN SODIUM,PORCINE 2,500 UNIT in SODIUM CHLORIDE 0.9% 250 ML IRRIGATION PRN (07:00)
[2023-04-26] MEDS ORDERED: ASPIRIN 325 MG TAB PO ONE (07:00)
[2023-04-26] MEDS ORDERED: HEPARIN SODIUM,PORCINE 10,000 UNIT in SODIUM CHLORIDE 0.9% 1,000 ML IRRIGATION PRN (07:00)
[2023-04-26] MEDS ORDERED: IV FLUID CONTINUATION 1,000 ML IV ONE (07:30)
[2023-04-26 07:59] LABS: African American GFR (CKD) 62 (>60 ml/min/1.73 sqM); Anion Gap 5 mmol/L; Blood Urea Nitrogen 44 mg/dL (7-17); Calcium 9.8 mg/dL (8.4-10.2); Carbon Dioxide 33 mmol/L (22-30); Chloride 98 mmol/L (98-107); Glucose 86 mg/dL (74-99); Non-African American GFR(CKD) 54 (>60 ml/min/1.73 sqM); Sodium 136 mmol/L (137-145)
[2023-04-26] MEDS ORDERED: LIDOCAINE 1% INJ 10MG/ML (5 ML VIAL-PF) SQ ONE (08:31)
[2023-04-26] MEDS ORDERED: VERAPAMIL SYRINGE (5 MG/10 ML) INTRAARTER ONE (08:33)
[2023-04-26] MEDS ORDERED: HEPARIN SODIUM 1,000 UN/ML (10ML VL) IV ONE (08:35)
[2023-04-26] MEDS ORDERED: IOPAMIDOL-370 100ML BTL INJ ONE (08:42)
--- NOTE | 2023-04-26 10:10 | P.CARDCATH ---
Description of Procedure: PROCEDURES PERFORMED: Left heart catheterization, bilateral coronary angiography INDICATION: NSTEMI CONSENT:I have discussed the risks, benefits and alternative therapies for the above-mentioned procedure and for both sedation/analgesia as well as necessary blood product administration, if indicated, as they pertain to this patient. The patient has indicated understanding and acceptance of the risks and procedures discussed. PROCEDURE: After the risks, benefits and alternatives of the above mentioned procedure explained in detail with the patient, informed consent was obtained. Patient was taken to the catheterization lab and prepped and draped in usual fashion. 1% lidocaine was used to anesthetize the right radial artery. A 6- [place] sheath was placed in the right radial artery using modified Seldinger technique. Left coronary angiography was performed with a 5-Green[place]ic JL 3.5 catheter and right coronary angiography was performed with a 5-[place]ic JR5 catheter in various views. A 5-[place] FR5 catheter was inserted into the left ventricle and pressure measurements were obtained. The right radial sheath was removed and a TR band was placed with hemostasis achieved. The patient tolerated the procedure well. Patient was transported back to the post catheterization holding area in stable condition. Conscious Sedation: Patient was monitored under the direct supervision of myself for conscious sedation using Versed and fentanyl for a total duration of 15 minutes HEMODYNAMICS: Ao: 82/55 LV: 81/3, LVEDP 13 SELECTIVE CORONARY ARTERIOGRAPHY: LEFT MAIN: The left main is a large caliber vessel which bifurcates into the LAD and circumflex. There is no significant stenosis. LEFT ANTERIOR DESCENDING CORONARY ARTERY: LAD is a large caliber vessel which wraps around to the apex. There is 30% proximal LAD and a mid LAD 60-70% stenosis. Otherwise mild luminal irregularities. LEFT CIRCUMFLEX CORONARY ARTERY: Left circumflex is a moderate caliber vessel which is dominant. Circumflex gives off the PDA and is dominant. There is a 60-70% stenosis of the distal circumflex leading to the PDA. RIGHT CORONARY ARTERY: The right coronary artery is a small caliber vessel which gives off acute marginal and is nondominant. There is no significant stenosis. FINAL IMPRESSION: 1. CAD as described above including 60s 70% mid LAD and 60-70% distal circumflex leading to PDA 2. Cardiomyopathy out of proportion to CAD 3. Normal left sided filling pressures PLAN: 1. Aggressive risk factor modification per most recent ACC/AHA guidelines. 2. Treat PDA and LAD medically as does not appear to be causing her cardiomyopathy and majority of symptoms appear related to cardiomyopathy. Is having more angina may consider further assessment of circumflex/PDA lesion.
[2023-04-26 10:50] LABS: Basophils % (A) 0 %; Eosinophils # (A) 0.2 k/uL (0-0.7); Eosinophils % (A) 3 %; HCT 40.3 % (34.0-46.0); Lymphocytes # (A) 0.9 k/uL (1.0-4.8); Lymphocytes % (A) 11 %; MCHC 32.4 g/dL (31.0-37.0); MCV 89.6 fL (80.0-100.0); Mean Platelet Volume 8.4; Monocytes # (A) 0.5 k/uL (0-1.0); Monocytes % (A) 6 %; Neutrophils # (A) 6.5 k/uL (1.3-7.7); Neutrophils % (A) 78 %; Platelet Count 182 k/uL (150-450); RBC 4.49 m/uL (3.80-5.40); RDW 14.2 % (11.5-15.5); WBC 8.3 k/uL (3.8-10.6)
[2023-04-26] MEDS ORDERED: SODIUM CHLORIDE 0.9% 500 ML 500 ML IV ONE (11:21)
--- NOTE | 2023-04-26 15:17 | P.PN ---
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 She has a past medical history of hyperlipidemia and hypothyroidism. She gives history of having shortness of breath that started about a week ago but she was putting off getting treatment because she had an appointment with Dr. Dominique yesterday. It was noted that she had weight gain of 7 pounds, lower extremity edema and he sent her to the emergency center for further evaluation. At the time of this evaluation. Patient states that she does have minimal shortness of breath with activity and lower extremity edema is improving. She denies having any chest pain or pressure, no pain in the jaw or arms. No sweats. No orthopnea, she states she's never had this shortness of breath before. Patient received 1 dose of IV Lasix has been followed by IV 40 every 12 hours. She has been diuresing. She does have a history of smoking and quit 30 years ago. She drinks a glass of wine sometimes before dinner. She has a family history with mother having heart failure. Objective - Vital Signs Vital signs: Vital Signs Temp 97.4 F L 04/26/23 09:09 Pulse 64 04/26/23 09:09 Resp 18 04/26/23 09:09 BP 90/52 04/26/23 09:09 Pulse Ox 92 L 04/26/23 09:09 FiO2 Intake & Output 04/25/23 04/26/23 04/26/23 18:59 06:59 18:59 Intake Total 1156 400 Output Total 400 800 150 Balance 756 -800 250 Weight 39.5 kg Intake: IV 400 Oral 1156 Output: Urine 400 800 150 Other: Voiding Method Toilet Toilet Toilet - Exam HEENT: Head is atraumatic, normocephalic. Pupils equal, round. Sclerae is anicteric. NECK: Supple. No JVD. LUNGS: Mild crackles to the bilateral bases No intercostal retractions. HEART: Irregular rate and rhythm. No murmur. ABDOMEN: Soft No tenderness. EXTREMITIES: 1+ pedal edema. No calf tenderness. NEUROLOGICAL: Patient is awake, alert and oriented x3. - Labs CBC & Chem 7: 04/26/23 10:08 04/26/23 07:33 Labs: Abnormal Lab Results - Last 24 Hours (Table) 04/26/23 Range/Units 07:33 Sodium 136 L (137-145) mmol/L Carbon Dioxide 33 H (22-30) mmol/L BUN 44 H (7-17) mg/dL Assessment and Plan Assessment: 1. Acute exacerbation systolic CHF - Clinically euvolemic; Lasix has been placed on hold. Echocardiogram is completed and reveals an EF of less than 20% - we will continue to monitor strict ERAN's, daily weights, low salt and fluid restricted diet - Further recommendations after cardiac catheterization is complete 2. Severe cardiomyopathy; echocardiogram reveals an EF of less than 20% - Cardiology on board and recommending cardiac catheterization 3. Bilateral pleural effusion; likely related to CHF exacerbation - Patient has been evaluated by pulmonary service and thoracentesis was not recommended at this time 4. Solitary lung nodule; PET scan recommended as an outpatient 5. Hypothyroidism; levothyroxin 25 MCG daily 6. Hyperlipidemia; Lipitor 10 mg daily at bedtime 7. Hypertension; patient remains on Coreg 6.25 mg twice a day DVT prophylaxis; SCDs/subcu heparin CODE STATUS; DO NOT RESUSCITATE
--- NOTE | 2023-04-26 15:39 | P.PN ---
Subjective Progress Note Date: 04/26/23 Principal diagnosis: Acute congestive heart failure, systolic in nature. This is an 88-year-old female, no previous significant medical history, she is primarily a patient of Dr benitez Patient is on treatment for hyperlipidemia and hypothyroidism. No previous documented cardiac history and no previous documented pulmonary history. Patient was brought into the ER with 1 week history of shortness of breath. She also gained 7 pounds and she was developing swelling in her lower extremities. Denies any chest pain, denies any orthopnea denies any PND. Seen in the ER, chest x-ray showed evidence of bilateral pleural effusions/congestive heart failure. Patient was also noted to have abnormal CT of the chest, right apical pulmonary nodule, and bilateral pleural effusions as well as nonspecific fibrotic changes noted bilaterally especially in the apices of her lungs. Patient was admitted and this consult was initial. Since admission the patient received IV Lasix, she continues to receive Lasix at 40 mg IV push every 12 hours, she is responding quite well to diuresis, and she is feeling much better today compared to how she felt upon her initial presentation. Hence I'm recommending that we continue the same treatment, and for a pulmonary nodule the patient will need outpatient follow-up, may consider a PET scan on outpatient basis. Patient did have very remote smoking history, that smoking history was minimal, and she quit smoking over 30 years ago Reevaluated today on 04/26/2023, patient is feeling better today, breathing easier. She underwent cardiac catheterization, and the cardiac catheterization report was noted, the recommendation is mostly medical therapy. Clinically the patient is feeling better breathing easier, hence I have no plans to consider thoracentesis on this patient at this point. Patient is basically responding well to diuretics. WBC count is 8.3 hemoglobin 13 basic metabolic profile is normal renal profile is normal Objective - Vital Signs Vital signs: Vital Signs Temp 97.4 F L 04/26/23 09:09 Pulse 70 04/26/23 12:54 Resp 17 04/26/23 12:54 BP 100/62 04/26/23 12:54 Pulse Ox 94 L 04/26/23 12:54 FiO2 Intake & Output 04/25/23 04/26/23 04/26/23 18:59 06:59 18:59 Intake Total 1156 580 Output Total 400 800 150 Balance 756 -800 430 Weight 39.5 kg Intake: IV 400 Oral 1156 180 Output: Urine 400 800 150 Other: Voiding Method Toilet Toilet Toilet - Exam Physical Exam: Revealed 88-year-old female in no distress very pleasant on room air Head: Atraumatic normocephalic. HEENT:[Neck is supple.] [No neck masses.] [No thyromegaly.] [No JVD.] Chest: [Slightly diminished breath sounds at the bases no crackles or rhonchi or wheezes] Cardiac Exam: [Normal S1 and S2, no S3 gallop, no murmur.] Abdomen: [Soft, nontender, no megaly, no rebound, no guarding, normal bowel sounds.] Extremities: [No clubbing, no edema, no cyanosis.] Neurological Exam: [No focal neurologic deficit.] Alert and oriented 3. Psychiatric: Normal mood affect and normal mental status examination. Skin: No rashes - Labs CBC & Chem 7: 04/26/23 10:08 04/26/23 07:33 Labs: Abnormal Lab Results - Last 24 Hours (Table) 04/26/23 04/26/23 Range/Units 07:33 10:08 Lymphocytes # 0.9 L (1.0-4.8) k/uL Sodium 136 L (137-145) mmol/L Carbon Dioxide 33 H (22-30) mmol/L BUN 44 H (7-17) mg/dL Assessment and Plan Assessment: Impression: Acute congestive heart failure, systolic in nature, patient had an ejection fraction of less than 20%. Bilateral pleural effusions secondary to above Severe cardiomyopathy and LV dysfunction, cardiology is addressing this issue. History of hypothyroidism History of dyslipidemia Solitary lung nodule, will need outpatient follow-up Recommendation: Continue diuretics PET scan on outpatient basis for pulmonary nodule over the patient is not a surgical candidate by any means. No need for thoracentesis at this point since the patient is responding well to Lasix This is a discharge planning was the patient is cleared by cardiology Follow-up on outpatient basis. Time with Patient: Less than 30
[2023-04-26] MEDS: SODIUM CHLORIDE 0.9% 1,000 ML IV SCH (15:56)
[2023-04-27] MEDS: LEVOTHYROXINE 25 MCG TAB PO SCH (06:23)
[2023-04-27] MEDS: carvediloL 6.25 MG TAB PO SCH ×3 (06:23→16:51)
[2023-04-27] MEDS: ATORVASTATIN 10 MG TAB PO SCH (08:02)
[2023-04-27] MEDS: CHOLECALCIFEROL 125 MCG (5000 IU) TABLET PO SCH (08:02)
[2023-04-27] MEDS: CALCIUM CARB-VIT D 500 MG-5 MCG TAB PO SCH ×2 (08:02→20:44)
[2023-04-27] MEDS: SODIUM CHLORIDE 0.9% 1,000 ML IV SCH (08:04)
[2023-04-27] MEDS: NITROGLYCERIN OINT 1 INCH/GM PACKET TOPICAL SCH ×4 (08:04→20:42)
[2023-04-27 10:41] LABS: Basophils % (A) 0 %; Eosinophils # (A) 0.2 k/uL (0-0.7); Eosinophils % (A) 3 %; HCT 42.4 % (34.0-46.0); HGB 13.5 gm/dL (11.4-16.0); Lymphocytes # (A) 0.9 k/uL (1.0-4.8); Lymphocytes % (A) 13 %; MCH 29.2 pg (25.0-35.0); MCHC 31.8 g/dL (31.0-37.0); MCV 91.9 fL (80.0-100.0); Mean Platelet Volume 8.9; Monocytes # (A) 0.4 k/uL (0-1.0); Monocytes % (A) 5 %; Neutrophils # (A) 5.5 k/uL (1.3-7.7); Neutrophils % (A) 77 %; Platelet Count 173 k/uL (150-450); RBC 4.61 m/uL (3.80-5.40); RDW 14.3 % (11.5-15.5); WBC 7.2 k/uL (3.8-10.6)
[2023-04-27 10:57] LABS: African American GFR (CKD) 65 (>60 ml/min/1.73 sqM); Anion Gap 6 mmol/L; Blood Urea Nitrogen 37 mg/dL (7-17); Calcium 9.3 mg/dL (8.4-10.2); Carbon Dioxide 30 mmol/L (22-30); Chloride 101 mmol/L (98-107); Glucose 166 mg/dL (74-99); Non-African American GFR(CKD) 56 (>60 ml/min/1.73 sqM); Potassium 3.7 mmol/L (3.5-5.1); Sodium 137 mmol/L (137-145)
--- NOTE | 2023-04-27 16:20 | P.PN ---
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 She has a past medical history of hyperlipidemia and hypothyroidism. She gives history of having shortness of breath that started about a week ago but she was putting off getting treatment because she had an appointment with Dr. Dominique yesterday. It was noted that she had weight gain of 7 pounds, lower extremity edema and he sent her to the emergency center for further evaluation. At the time of this evaluation. Patient states that she does have minimal shortness of breath with activity and lower extremity edema is improving. She denies having any chest pain or pressure, no pain in the jaw or arms. No sweats. No orthopnea, she states she's never had this shortness of breath before. Patient received 1 dose of IV Lasix has been followed by IV 40 every 12 hours. She has been diuresing. She does have a history of smoking and quit 30 years ago. She drinks a glass of wine sometimes before dinner. She has a family history with mother having heart failure. Patient is seen today in the emergency center waiting for a bed on the cardiac stepdown unit EKG sinus rhythm, sinus arrhythmia Chest x-ray: Cardiomegaly with bilateral pleural effusions WBC 8.1, hemoglobin 14.9, platelet count 221. D-dimer 0.82. Electrolytes normal. BUN 38 creatinine 0.8. Lactic acid 1.4. Magnesium 2. AST 58, ALT 61. Troponin 0.039. ProBNP 6490. Home cardiac medications: Levothyroxine 25 g daily, rosuvastatin 5 mg daily 04/25 Patient is seen today on the cardiac stepdown unit. She states her breathing is better today and she has been urinating a lot. She has ambulated in her room only. She denies any chest pain or pressure. She does have shortness of breath with activity. She continues to have minimal edema only. Echocardiogram reveals EF of less than 20%. Discussed option of cardiac catheterization with the patient and family members at bedside. She is in agreement to move forward with this and it will be scheduled for tomorrow. Patient will be started on mild hydration overnight. 04/27 Patient seen and examined, out of bed in bedside chair. She reports that her breathing is okay however does report having some chest heaviness when she was getting up. Denies any chest pain or pressure right now. She underwent heart catheterization 04/26 that revealed CAD including 6070% mid LAD and 6070% distal circumflex leading to PDA stenosis. Creatinine 0.91. She was walking in the hallways with her nephew and was feeling well. Physical examination: Gen: This is a frail appearing 88-year-old female. She appears to be comfortable and in no acute distress. VS: reviewed HEENT: Head is atraumatic, normocephalic. Pupils equal, round. Sclerae is anicteric. NECK: Supple. No JVD. LUNGS: Mild crackles to the bilateral bases, wheeze. HEART: Irregular rate and rhythm. No murmur. ABDOMEN: Soft No tenderness. EXTREMITIES: 1+ pedal edema. No calf tenderness. Right radial sites with no hematoma, no active bleeding, + bruising, distal pulses present. NEUROLOGICAL: Patient is awake, alert and oriented x3. Assessment: Acute systolic heart failure, EF <20% Hyperlipidemia Hypothyroidism CAD, 6070% mid LAD and 6070% distal circumflex leading to PDA stenosis Plan: We will continue with medical management as CAD does not appear to be causing her cardiomyopathy and majority of symptoms related to repeat cardiomyopathy. Patient is cleared for discharge home from a cardiology standpoint. Continue current medications. Follow up in cardiology clinic in 1 week. Nurse practitioner note has been reviewed, I agree with documented findings and plan of care. Patient was seen and examined. Objective - Vital Signs Vital signs: Vital Signs Temp 97.4 F L 04/27/23 08:00 Pulse 69 04/27/23 08:00 Resp 17 04/27/23 08:00 BP 111/54 04/27/23 08:00 Pulse Ox 95 04/27/23 08:00 FiO2 Intake & Output 04/26/23 04/27/23 04/27/23 18:59 06:59 18:59 Intake Total 760 110 Output Total 150 200 Balance 610 -90 Intake: IV 400 Oral 360 110 Output: Urine 150 200 Other: Voiding Method Toilet Toilet Toilet # Voids 3 1 - Labs CBC & Chem 7: 04/27/23 09:22 04/27/23 09:22 Labs: Abnormal Lab Results - Last 24 Hours (Table) 04/27/23 04/27/23 Range/Units 09:22 09:22 Lymphocytes # 0.9 L (1.0-4.8) k/uL BUN 37 H (7-17) mg/dL Glucose 166 H (74-99) mg/dL
[2023-04-28] MEDS: SODIUM CHLORIDE 0.9% 1,000 ML IV SCH (03:38)
[2023-04-28] MEDS: LEVOTHYROXINE 25 MCG TAB PO SCH (06:17)
[2023-04-28] MEDS: carvediloL 6.25 MG TAB PO SCH ×2 (06:17→13:33)
[2023-04-28] MEDS: NITROGLYCERIN OINT 1 INCH/GM PACKET TOPICAL SCH ×2 (07:52→11:29)
[2023-04-28] MEDS: ATORVASTATIN 10 MG TAB PO SCH (07:52)
[2023-04-28] MEDS: CHOLECALCIFEROL 125 MCG (5000 IU) TABLET PO SCH (07:52)
[2023-04-28] MEDS: CALCIUM CARB-VIT D 500 MG-5 MCG TAB PO SCH (07:52)
[2023-04-28 09:17] VITALS: TEMP 97.4
--- NOTE | 2023-04-28 11:20 | P.PN ---
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 She has a past medical history of hyperlipidemia and hypothyroidism. She gives history of having shortness of breath that started about a week ago but she was putting off getting treatment because she had an appointment with Dr. Dominique yesterday. It was noted that she had weight gain of 7 pounds, lower extremity edema and he sent her to the emergency center for further evaluation. At the time of this evaluation. Patient states that she does have minimal shortness of breath with activity and lower extremity edema is improving. She denies having any chest pain or pressure, no pain in the jaw or arms. No sweats. No orthopnea, she states she's never had this shortness of breath before. Patient received 1 dose of IV Lasix has been followed by IV 40 every 12 hours. She has been diuresing. She does have a history of smoking and quit 30 years ago. She drinks a glass of wine sometimes before dinner. She has a family history with mother having heart failure. 04/27/2023 - patient is seen and evaluated in room at bedside; report feeling better today, breathing easier. She underwent cardiac catheterization, and the cardiac catheterization, the recommendation is mostly medical therapy. Clinically the patient is feeling better breathing easier, pulmonary embolism and have no plans to consider thoracentesis on this patient at this point. Patient is basically responding well to diuretics. WBC count is 8.3 hemoglobin 13 basic metabolic profile is normal renal profile is normal Continue diuretics PET scan on outpatient basis for pulmonary nodule over the patient is not a surgical candidate by any means. No need for thoracentesis at this point since the patient is responding well to Lasix Objective - Vital Signs Vital signs: Vital Signs Temp 97.4 F L 04/27/23 08:00 Pulse 70 04/27/23 11:35 Resp 18 04/27/23 11:35 BP 114/62 04/27/23 11:35 Pulse Ox 97 04/27/23 11:35 FiO2 Intake & Output 04/26/23 04/27/23 04/27/23 18:59 06:59 18:59 Intake Total 760 220 Output Total 150 550 Balance 610 -330 Intake: IV 400 Oral 360 220 Output: Urine 150 550 Other: Voiding Method Toilet Toilet Toilet # Voids 3 1 - Exam HEENT: Head is atraumatic, normocephalic. Pupils equal, round. Sclerae is anicteric. NECK: Supple. No JVD. LUNGS: Mild crackles to the bilateral bases No intercostal retractions. HEART: Irregular rate and rhythm. No murmur. ABDOMEN: Soft No tenderness. EXTREMITIES: 1+ pedal edema. No calf tenderness. NEUROLOGICAL: Patient is awake, alert and oriented x3. - Labs CBC & Chem 7: 04/27/23 09:22 04/27/23 09:22 Labs: Abnormal Lab Results - Last 24 Hours (Table) 04/27/23 04/27/23 Range/Units 09: 09:22 Lymphocytes # 0.9 L (1.0-4.8) k/uL BUN 37 H (7-17) mg/dL Glucose 166 H (74-99) mg/dL Assessment and Plan Assessment: 1. Acute exacerbation systolic CHF - Clinically euvolemic; Lasix has been placed on hold. Echocardiogram is completed and reveals an EF of less than 20% - we will continue to monitor strict ERAN's, daily weights, low salt and fluid restricted diet - Further recommendations after cardiac catheterization is complete 2. Severe cardiomyopathy; echocardiogram reveals an EF of less than 20% - Cardiology on board and recommending cardiac catheterization 3. Bilateral pleural effusion; likely related to CHF exacerbation - Patient has been evaluated by pulmonary service and thoracentesis was not recommended at this time 4. Solitary lung nodule; PET scan recommended as an outpatient 5. Hypothyroidism; levothyroxin 25 MCG daily 6. Hyperlipidemia; Lipitor 10 mg daily at bedtime 7. Hypertension; patient remains on Coreg 6.25 mg twice a day DVT prophylaxis; SCDs/subcu heparin CODE STATUS; DO NOT RESUSCITATE
--- NOTE | 2023-04-28 12:29 | P.PN ---
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 She has a past medical history of hyperlipidemia and hypothyroidism. She gives history of having shortness of breath that started about a week ago but she was putting off getting treatment because she had an appointment with Dr. Dominique yesterday. It was noted that she had weight gain of 7 pounds, lower extremity edema and he sent her to the emergency center for further evaluation. At the time of this evaluation. Patient states that she does have minimal shortness of breath with activity and lower extremity edema is improving. She denies having any chest pain or pressure, no pain in the jaw or arms. No sweats. No orthopnea, she states she's never had this shortness of breath before. Patient received 1 dose of IV Lasix has been followed by IV 40 every 12 hours. She has been diuresing. She does have a history of smoking and quit 30 years ago. She drinks a glass of wine sometimes before dinner. She has a family history with mother having heart failure. Patient is seen today in the emergency center waiting for a bed on the cardiac stepdown unit EKG sinus rhythm, sinus arrhythmia Chest x-ray: Cardiomegaly with bilateral pleural effusions WBC 8.1, hemoglobin 14.9, platelet count 221. D-dimer 0.82. Electrolytes normal. BUN 38 creatinine 0.8. Lactic acid 1.4. Magnesium 2. AST 58, ALT 61. Troponin 0.039. ProBNP 6490. Home cardiac medications: Levothyroxine 25 g daily, rosuvastatin 5 mg daily 04/25 Patient is seen today on the cardiac stepdown unit. She states her breathing is better today and she has been urinating a lot. She has ambulated in her room only. She denies any chest pain or pressure. She does have shortness of breath with activity. She continues to have minimal edema only. Echocardiogram reveals EF of less than 20%. Discussed option of cardiac catheterization with the patient and family members at bedside. She is in agreement to move forward with this and it will be scheduled for tomorrow. Patient will be started on mild hydration overnight. 04/27 Patient seen and examined, out of bed in bedside chair. She reports that her breathing is okay however does report having some chest heaviness when she was getting up. Denies any chest pain or pressure right now. She underwent heart catheterization 04/26 that revealed CAD including 6070% mid LAD and 6070% distal circumflex leading to PDA stenosis. Creatinine 0.91. She was walking in the hallways with her nephew and was feeling well. 04/28 Patient is awaiting discharge home. She denies any chest heaviness today. She has been ambulatory. No CP or SOB. Physical examination: Gen: This is a frail appearing 88-year-old female. She appears to be comfortable and in no acute distress. VS: reviewed HEENT: Head is atraumatic, normocephalic. Pupils equal, round. Sclerae is anicteric. NECK: Supple. No JVD. LUNGS: Mild crackles to the bilateral bases, wheeze. HEART: Irregular rate and rhythm. No murmur. ABDOMEN: Soft No tenderness. EXTREMITIES: Trace pedal edema. No calf tenderness. Right radial site with no hematoma, no active bleeding, + bruising, distal pulses present. NEUROLOGICAL: Patient is awake, alert and oriented x3. Assessment: Acute systolic heart failure, EF <20% Hyperlipidemia Hypothyroidism CAD, 6070% mid LAD and 6070% distal circumflex leading to PDA stenosis Plan: Continue with medical management as CAD does not appear to be causing her cardiomyopathy and majority of symptoms related to repeat cardiomyopathy. Patient is cleared for discharge home from a cardiology standpoint. Continue current medications. Follow up in cardiology clinic in 1 week. Nurse practitioner note has been reviewed, I agree with documented findings and plan of care. Patient was seen and examined. Objective - Vital Signs Vital signs: Vital Signs Temp 97.4 F L 04/28/23 07:45 Pulse 69 04/28/23 07:45 Resp 18 04/28/23 07:45 BP 91/55 04/28/23 07:45 Pulse Ox 94 L 04/28/23 07:45 FiO2 Intake & Output 04/27/23 04/28/23 04/28/23 18:59 06:59 18:59 Intake Total 460 240 Output Total 550 550 Balance -90 -550 240 Weight 91.7 kg Intake: Oral 460 240 Output: Urine 550 550 Other: Voiding Method Toilet Toilet Toilet # Voids 3 - Labs CBC & Chem 7: 04/27/23 09:22 04/27/23 09:22
[2023-04-28 12:44] VITALS: BP 98/63; PULSE 64; RESP 17
[2023-04-28 13:32] LABS: African American GFR (CKD) 68 (>60 ml/min/1.73 sqM); Anion Gap 5 mmol/L; Blood Urea Nitrogen 30 mg/dL (7-17); Calcium 9.7 mg/dL (8.4-10.2); Carbon Dioxide 31 mmol/L (22-30); Chloride 100 mmol/L (98-107); Glucose 186 mg/dL (74-99); Non-African American GFR(CKD) 59 (>60 ml/min/1.73 sqM); Potassium 4.6 mmol/L (3.5-5.1); Sodium 136 mmol/L (137-145)
== END 2023-04-28 14:17 | disposition home or self-care (01) | DRG 286 ==
LOC: EC 16:22 → 3SCARD 19:18
PROVIDERS: ADMIT Hospitalist; ATTEND Hospitalist
PROC: B2161ZZ Fluoroscopy of Right and Left Heart using Low Osmolar Contrast (ICD-10-PCS; principal; 2023-04-26 09:00)
PROC: B2111ZZ Fluoroscopy of Multiple Coronary Arteries using Low Osmolar Contrast (ICD-10-PCS; principal; 2023-04-26 09:00)
PROC: 4A023N7 Measurement of Cardiac Sampling and Pressure, Left Heart, Percutaneous Approach (ICD-10-PCS; principal; 2023-04-26 09:00)
DX: I11.0 Hypertensive heart disease with heart failure (principal); I50.23 Acute on chronic systolic (congestive) heart failure; I25.10 Atherosclerotic heart disease of native coronary artery without angina pectoris; I42.9 Cardiomyopathy, unspecified; E03.9 Hypothyroidism, unspecified; E78.5 Hyperlipidemia, unspecified; Z66 Do not resuscitate; Z79.890 Hormone replacement therapy; Z79.899 Other long term (current) drug therapy; Z82.49 Family history of ischemic heart disease and other diseases of the circulatory system; R91.1 Solitary pulmonary nodule; Z71.3 Dietary counseling and surveillance
CPT/HCPCS: 36415; 71045; 71046; 71275; 80048; 80053; 83605; 83735; 83880; 84484; 85025; 85379; 85610; 85730; 93005; 93306; 93458; 96374; 96375; 99285